=== PATIENT | male | born 1940 | race Caucasian/White ===

== ENCOUNTER 2017-09-13 11:04 | Inpatient (IN) | payer MEDICARE ==
[~2017-09-13] VITALS: Ht 185.4 cm; Wt 91.0 kg
[~2017-09-13 11:04] MED LIST: CAPTOPRIL12.5 MG PO; LEVEMIR100 UNIT/1 SQ; NOVOLOG100 UNITS1 SQ; ZOCOR40 MG PO
[2017-09-13] MEDS ORDERED: SODIUM CHLORIDE 0.9% 500ML 500 ML IV STA (11:26)
[2017-09-13] MEDS ORDERED: ONDANSETRON HCL 4 MG ORAL DISINTEGRATING TAB PO ONE (11:45)
[2017-09-13 11:52] LABS: BASOPHILS # (AUTO) 0.1 (0.0-0.1); BASOPHILS % 0.5 % (0.0-1.0); HEMATOCRIT 47.6 % (38.2-49.6); HEMOGLOBIN 15.9 g/dL (14.0-18.0); LYMPHOCYTES # (AUTO) 2.2 (1.0-3.2); LYMPHOCYTES % 11.2 % (18.0-39.1); MEAN CORPUSCULAR HEMOGLOBIN 30.9 pg (28-32); MEAN CORPUSCULAR HGB CONC 33.4 g/dL (31-35); MEAN CORPUSCULAR VOLUME 92.6 fL (81-99); MONOCYTES % 4.9 % (4.4-11.3); NEUTROPHILS # (AUTO) 16.1 (2.1-6.9); NEUTROPHILS % 82.2 % (38.7-80.0); PLATELET COUNT 279 x10e3/uL (140-360); RED BLOOD COUNT 5.14 x10e6/uL (4.3-5.7); RED CELL DISTRIBUTION WIDTH 12.5 % (11.7-14.4)
[2017-09-13 12:02] LABS: INR 1.15; PROTHROMBIN TIME 13.8 seconds (11.9-14.5)
[2017-09-13 12:03] LABS: PARTIAL THROMBOPLASTIN TIME 24.2 seconds (23.8-35.5)
[2017-09-13 12:03] LABS: BILIRUBIN,URINE NEGATIVE (NEGATIVE); CLARITY,URINE CLEAR (CLEAR); COLOR,URINE YELLOW (YELLOW); KETONES,URINE 3+ (NEGATIVE); LEUKOCYTE ESTERASE ,URINE NEGATIVE (NEGATIVE); NITRITE,URINE NEGATIVE (NEGATIVE); PROTEIN,URINE DIPSTICK NEGATIVE (NEGATIVE); URINE UROBILINOGEN 0.2 mg/dL (0.2 - 1)
[2017-09-13 12:08] LABS: ALBUMIN 4.2 g/dL (3.5-5.0); ALBUMIN/GLOBULIN RATIO 1.2 (0.8-2.0); ANION GAP 30.9 mmol/L (8-16); CALCIUM 10.1 mg/dL (8.4-10.2); CREATININE, SERUM 1.67 mg/dL (0.72-1.25); MAGNESIUM 1.8 MG/DL (1.3-2.1); POTASSIUM 4.9 mmol/L (3.5-5.1)
[2017-09-13] MEDS ORDERED: DIATRIZOATE MEGL/DIATRIZOA SOD 30 ML BTL PO ONE (12:47)
[2017-09-13] MEDS ORDERED: INSULIN REGULAR, HUMAN 100 UNIT/1 ML 3ML VIAL IV ONE (13:30)
[2017-09-13] MEDS ORDERED: HUMALOG100 UNIT/1 SC (13:43)
--- NOTE | 2017-09-13 15:27 | Diagnostic Imaging Report ---
PROCEDURE: CT ABDOMEN AND PELVIS WITH CONTRAST TECHNIQUE: The abdomen and pelvis were scanned utilizing a multidetector helical scanner from the diaphragm to the lesser trochanter after the IV administration of 100 cc of Isovue 370. Patient unable to drink. Coronal and sagittal multiplanar reformations were obtained. COMPARISON: None available.. INDICATIONS: LOWER ABDOMINAL PAIN, VOMITING, NAUSEA FINDINGS: LOWER THORAX: 2-3 mm nodule versus confluent scarring in the lateral right middle lobe (series 2, image 3). Questionable 2-3 mm nodule in the right lower lobe (series 2 image 4). Rest of the lung bases is clear. HEPATOBILIARY: Normal hepatic size and contour. No focal lesions. No biliary ductal dilation. Gallbladder is unremarkable. SPLEEN: No splenomegaly. PANCREAS: No focal masses or ductal dilatation. ADRENALS: No adrenal nodules. KIDNEYS/URETERS: No hydronephrosis, stones, or solid mass lesions. PELVIC ORGANS/BLADDER: Mild circumferential bladder wall thickening, without focal lesions. Prostate measures approximately 4.9 x 4.8 x 3.2 cm (estimated volume 39 cc), and indents the inferior aspect of the bladder. PERITONEUM / RETROPERITONEUM: No free air or fluid. LYMPH NODES: No lymphadenopathy. VESSELS: Celiac trunk, superior and inferior mesenteric, and bilateral renal arteries are patent. Portal, superior mesenteric, and splenic veins are patent. Likely circumaortic left renal vein. GI TRACT: No bowel dilation or evidence of obstruction. Mild wall thickening involving the terminal ileum (for example coronal image 34), with mild prominence of the submucosal fat. Mild wall thickening is also noted in the ascending colon, however, the large bowel is mostly decompressed. Mild prominence of the vasa recta in the ascending colon. Small bowel is unremarkable. Stomach is unremarkable. BONES AND SOFT TISSUES: No aggressive lytic lesions. Degenerative disc changes predominantly at L5-S1.. IMPRESSION: 1. Findings may represent mild terminal ileitis and ascending colitis, in the appropriate clinical setting, which may be infectious or inflammatory. Correlate for prior inflammatory bowel disease (particularly Crohn's) given the presence of submucosal fat deposition in the terminal ileum. No bowel dilation or evidence of obstruction. 2. Mild circumferential bladder wall thickening, likely secondary to bladder or other obstruction from enlarged prostate. 3. Nodular densities in the lateral right middle lobe and right lower lobe do not require followup if this is a low risk patient, per Fleischner Society 2017 guidelines. Zac Reese M.D. Dictated by: Zac Reese M.D. on 09/13/2017 at 15:28 Electronically approved by: Zac Reese M.D. on 09/13/2017 at 15:28
[2017-09-13] MEDS ORDERED: IOPAMIDOL 370 MG/ML 200 ML INFUS..BTL INJ ONE (15:31)
[2017-09-13] MEDS ORDERED: SODIUM CHLORIDE 0.9% 50ML 50 ML ONE (15:31)
[2017-09-13] MEDS ORDERED: ONDANSETRON HCL INJ 2 MG/ML VIAL IV STA (15:34)
[2017-09-13] MEDS ORDERED: SODIUM CHLORIDE 0.9% 1000ML 1,000 ML IV ONE (15:45)
[2017-09-13] MEDS ORDERED: SODIUM CHLORIDE 0.9% 1000ML 1,000 ML ONE (15:51)
[2017-09-13] MEDS: ACETAMINOPHEN 325 MG TAB PO ONE ×2 (16:31→16:51)
[2017-09-13] MEDS ORDERED: DEXTROSE 50% SYRINGE 50 ML IV PRN (16:45)
[2017-09-13] MEDS ORDERED: ACETAMINOPHEN 325 MG/10 ML UDC NG STA (16:49)
[2017-09-13] MEDS: SODIUM CHLORIDE 0.9% 1000ML 1,000 ML IV SCH ×3 (17:10→22:06)
--- OUTSIDE RECORDS SUMMARY | 2017-09-13 17:15 | XMS REPORT ---
Author Author [facility] [place] Address Unknown Phone Unavailable Care Team Providers Care Fiction Writer Name Role Phone DESTINY PLUMMER Unavailable Unavailable Problems This patient has no known problems. Allergies, Adverse Reactions, Alerts This patient has no known allergies or adverse reactions. Medications This patient has no known medications. Results Test Description Test Time Test Comments Text Results Atomic Results Result Comments CT ABDOMEN/PELVIS W [place] [address] Patient Name: ESSIE VILLAREAL MR #: [id number] : 1940 Age/Sex: 77/M Req #: [id number] Adm Physician: Ordered by: IDRIS ARREDONDO CARPET BINDER Report #: [id number] Location: ER Room/Bed: Procedure: [id number] CT/CT ABDOMEN/PELVIS W Exam Date: 09/13/17 Exam Time: 1350 REPORT STATUS: Signed PROCEDURE: CT ABDOMEN AND PELVIS WITH CONTRAST TECHNIQUE: The abdomen and pelvis were scanned utilizing a multidetector helical scanner from the diaphragm to the lesser trochanter after the IV administration of 100 cc of Isovue 370. Patient unable to drink. Coronal and sagittal multiplanar reformations were obtained. COMPARISON: None available.. INDICATIONS: LOWER ABDOMINAL PAIN, VOMITING, NAUSEA FINDINGS: LOWER THORAX: 2-3 mm nodule versus confluent scarring in the lateral right middle lobe (series 2, image 3 ). Questionable 2-3 mm nodule in the right lower lobe (series 2 image 4). Rest of the lung bases is clear. HEPATOBILIARY: Normal hepatic size and contour. No focal lesions. No biliary ductal dilation. Gallbladder is unremarkable. SPLEEN: No splenomegaly. PANCREAS: No focal masses or ductal dilatation. ADRENALS: No adrenal nodules. KIDNEYS/URETERS: No hydronephrosis, stones, or solid mass lesions. PELVIC ORGANS/BLADDER: Mild circumferential bladder wall thickening, without focal lesions. Prostate measures approximately 4.9 x 4.8 x 3.2 cm (estimated volume 39 cc), and indents the inferior aspect of the bladder. PERITONEUM / RETROPERITONEUM: No free air or fluid. LYMPH NODES: No lymphadenopathy. VESSELS: Celiac trunk, superior and inferior mesenteric, and bilateral renal arteries are patent. Portal, superior mesenteric, and splenic veins are patent. Likely circumaortic left renal vein. GI TRACT: No bowel dilation or evidence of obstruction. Mild wall thickening involving the terminal ileum (for example coronal image 34), with mild prominence of the submucosal fat. Mild wall thickening is also noted in the ascending colon, however, the large bowel is mostly decompressed. Mild prominence of the vasa recta in the ascending colon. Small bowel is unremarkable. Stomach is unremarkable. BONES AND SOFT TISSUES: No aggressive lytic lesions. Degenerative disc changes predominantly at L5-S1.. IMPRESSION: 1. Findings may represent mild terminal ileitis and ascending colitis, in the appropriate clinical setting, which may be infectious or inflammatory. Correlate for prior inflammatory bowel disease (particularly Crohn's) given the presence of submucosal fat deposition in the terminal ileum. No bowel dilation or evidence of obstruction. 2. Mild circumferential bladder wall thickening, likely secondary to bladder or other obstruction from enlarged prostate. 3. Nodular densities in the lateral right middle lobe and right lower lobe do not require followup if this is a low risk patient, per Fleischner Society 2017 guidelines. Shubham Reese M.D. Dictated by: Shubham Reese M.D. on 09/13/2017 at 15:28 Electronically approved by : Shubham Reese M.D. on 09/13/2017 at 15:28 Dictated By: SHUBHAM REESE MD [id number] Transcribed By: MACARIO on 09/13/17 1528 COPY TO: IDRIS ARREDONDO CARPET BINDER
[2017-09-13] MEDS: METRONIDAZOLE 500MG/NS 100ML 100 ML IV SCH ×2 (17:59→23:43)
[2017-09-13] MEDS ORDERED: INSULIN DETEMIR 100 UNIT/ML PEN SQ PRN (18:00)
[2017-09-13] MEDS ORDERED: METRONIDAZOLE 500MG/NS 100ML IV SCH (18:00)
[2017-09-13] MEDS ORDERED: MAGNESIUM SULF 1GRAM/DEXTROSE 100 ML IV PRN (18:00)
[2017-09-13] MEDS ORDERED: DEXTROSE 5%/0.45% SOD CHL 1,000 ML IV SCH (18:00)
[2017-09-13] MEDS ORDERED: INSULIN REGULAR, HUMAN 3ML VL 1 UNIT in SODIUM CHLORIDE 0.9% 100 ML IV SCH ×2 (18:00)
[2017-09-13] MEDS ORDERED: POTASSIUM CHLORIDE 20MEQ/100ML 200 ML IV PRN (18:00)
[2017-09-13 18:57] LABS: ANION GAP 30.3 mmol/L (8-16); CALCIUM 9.5 mg/dL (8.4-10.2); CREATININE, SERUM 1.72 mg/dL (0.72-1.25); MAGNESIUM 1.9 MG/DL (1.3-2.1)
[2017-09-13 19:01] LABS: POTASSIUM 6.3 mmol/L (3.5-5.1)
[2017-09-13] MEDS: INSULIN REGULAR, HUMAN 3ML VL 100 UNIT in SODIUM CHLORIDE 0.9% 100 ML IV SCH ×2 (19:34)
[2017-09-13] MEDS: INSULIN REGULAR, HUMAN 100 UNIT/1 ML 3ML VIAL SQ SCH (20:01)
[2017-09-13] MEDS ORDERED: SOD POLYSTYRENE SULFONATE SUSP 15 GM/60 ML BTL PO ONE (20:30)
[2017-09-13] MEDS: PIPER-TAZ 3.375 GM 50 ML IV SCH (21:59)
[2017-09-13] MEDS ORDERED: PIPER-TAZ 3.375 GM / NS 50ML IV SCH (22:00)
[2017-09-13 22:11] LABS: ANION GAP 24.4 mmol/L (8-16); CALCIUM 8.7 mg/dL (8.4-10.2); CREATININE, SERUM 1.89 mg/dL (0.72-1.25); MAGNESIUM 1.9 MG/DL (1.3-2.1); POTASSIUM 4.4 mmol/L (3.5-5.1)
[2017-09-14] MEDS ORDERED: CEPACOL SORE THROAT LOZENGES PO ONE (00:11)
[2017-09-14] MEDS: SODIUM CHLORIDE 0.9% 1000ML 1,000 ML IV SCH ×3 (00:30→06:23)
[2017-09-14 01:49] LABS: CALCIUM 8.6 mg/dL (8.4-10.2); CREATININE, SERUM 1.6 mg/dL (0.72-1.25); MAGNESIUM 1.8 MG/DL (1.3-2.1)
[2017-09-14] MEDS ORDERED: DEXTROSE 5%/0.45% SOD CHL 1,000 ML IV ONE (02:50)
[2017-09-14] MEDS ORDERED: SODIUM CHLORIDE 0.9% 100 ML ONE (04:16)
[2017-09-14] MEDS: INSULIN REGULAR, HUMAN 3ML VL 100 UNIT in SODIUM CHLORIDE 0.9% 100 ML IV SCH ×2 (04:25)
[2017-09-14] MEDS ORDERED: DEXTROSE 5%/0.45% SOD CHL 1,000 ML IV PRN (04:30)
[2017-09-14] MEDS: METRONIDAZOLE 500MG/NS 100ML 100 ML IV SCH ×3 (05:30→17:49)
[2017-09-14 05:32] LABS: BASOPHILS % 0.1 % (0.0-1.0); EOSINOPHILS % 0.1 % (0.0-6.0); HEMATOCRIT 38.4 % (38.2-49.6); HEMOGLOBIN 12.9 g/dL (14.0-18.0); LYMPHOCYTES % 7.1 % (18.0-39.1); MEAN CORPUSCULAR HEMOGLOBIN 31.1 pg (28-32); MEAN CORPUSCULAR HGB CONC 33.6 g/dL (31-35); MEAN CORPUSCULAR VOLUME 92.5 fL (81-99); MONOCYTES # (AUTO) 1.4 (0.2-0.8); MONOCYTES % 10.4 % (4.4-11.3); NEUTROPHILS # (AUTO) 11.2 (2.1-6.9); NEUTROPHILS % 81.9 % (38.7-80.0); PLATELET COUNT 226 x10e3/uL (140-360); RED BLOOD COUNT 4.15 x10e6/uL (4.3-5.7); RED CELL DISTRIBUTION WIDTH 12.9 % (11.7-14.4)
[2017-09-14 06:10] LABS: ALBUMIN 3.2 g/dL (3.5-5.0); ALBUMIN/GLOBULIN RATIO 1.2 (0.8-2.0); ANION GAP 10.4 mmol/L (8-16); CALCIUM 8.4 mg/dL (8.4-10.2); CREATININE, SERUM 1.53 mg/dL (0.72-1.25); POTASSIUM 3.4 mmol/L (3.5-5.1)
[2017-09-14] MEDS: PIPER-TAZ 3.375 GM 50 ML IV SCH ×3 (06:23→21:53)
[2017-09-14] MEDS ORDERED: POTASSIUM CHLORIDE 20MEQ/100ML 100 ML ONE (06:26)
[2017-09-14] MEDS: INSULIN REGULAR, HUMAN 100 UNIT/1 ML 3ML VIAL SQ SCH (07:37)
[2017-09-14] MEDS ORDERED: MAGNESIUM SULF 1GRAM/DEXTROSE 100 ML IV PRN (07:45)
[2017-09-14] MEDS: ONDANSETRON HCL INJ 2 MG/ML VIAL IV PRN (08:40)
[2017-09-14 09:56] LABS: ANION GAP 13.6 mmol/L (8-16); CALCIUM 8.2 mg/dL (8.4-10.2); CREATININE, SERUM 1.46 mg/dL (0.72-1.25); MAGNESIUM 1.8 MG/DL (1.3-2.1); POTASSIUM 3.6 mmol/L (3.5-5.1)
[2017-09-14] MEDS ORDERED: INSULIN DETEMIR 100 UNIT/ML PEN SQ PRN (13:45)
[2017-09-14 13:59] LABS: ANION GAP 10.1 mmol/L (8-16); CALCIUM 8.2 mg/dL (8.4-10.2); CREATININE, SERUM 1.33 mg/dL (0.72-1.25); MAGNESIUM 1.9 MG/DL (1.3-2.1); POTASSIUM 3.1 mmol/L (3.5-5.1)
[2017-09-14] MEDS: D5.45%NS/KCL 20MEQ 1,000 ML IV SCH ×2 (14:33→23:37)
--- NOTE | 2017-09-14 14:42 | Consultation ---
DATE OF CONSULTATION: September 14, 2017 ENDOCRINE CONSULTATION Thank you very much for referring this patient. This is a 77-year-old white male who is very well known to me from his previous followups in my office. Patient is a known case of type 1 diabetes mellitus with complications, including severe diabetic sensory neuropathy. Patient came to the hospital with a history of abdominal pain, nausea, vomiting, and high blood sugar. During the hospital stay, the patient has been getting IV fluids. He also has several complications related to diabetes, including severe diabetic sensorimotor neuropathy. PHYSICAL EXAMINATION GENERAL: Today, the patient is alert, awake and a little bit apprehensive. VITALS: His heart rate is around 100 and blood pressure 130/80 mmHg. HEENT: Essentially unremarkable. Thyroid is palpable. Clinically, he is near euthyroid. CHEST: Bilateral vesicular breathing. He has mild bronchospasm. ABDOMEN: Tenderness in the epigastric and the right upper quadrant area. EXTREMITIES: Patient has evidence of diabetic sensory neuropathy in both lower extremities. CLINICAL IMPRESSION 1. Diabetes mellitus, type 1. 2. Diabetic ketoacidosis. 3. Colitis. 4. Abdominal pain. The plan at this time is to continue insulin drip. Advance his diet. Will do a hemoglobin A1c. Thanks again for referring this patient. I will follow this patient with you. Job#: [id number] BOBBY
[2017-09-14 14:55] LABS: CHOL/HDL RATIO 3.1 (3.9-4.7)
[2017-09-14 15:15] LABS: FREE T4 (FREE THYROXINE) 0.87 ng/dL (0.9-1.8); THYROID STIMULATING HORMONE 1.562 uIU/mL (0.350-4.940)
[2017-09-14] MEDS ORDERED: INSULIN REGULAR, HUMAN 100 UNITS in SODIUM CHLORIDE 0.45% 100 ML SQ PRN ×2 (20:30)
[2017-09-14] MEDS ORDERED: INSULIN REGULAR, HUMAN 100 UNITS in SODIUM CHLORIDE 0.45% 100 ML IV PRN ×4 (20:30)
[2017-09-14 20:43] VITALS: BP 123/64
[2017-09-14 21:34] VITALS: BP 123/64
[2017-09-14] MEDS: ACETAMINOPHEN 325 MG TAB PO PRN (21:53)
[2017-09-15] VITALS (7 sets, daily range): BP systolic 120–141; BP diastolic 66–82
[2017-09-15] MEDS: METRONIDAZOLE 500MG/NS 100ML 100 ML IV SCH ×4 (00:43→19:28)
--- NOTE | 2017-09-15 03:10 | Consultation ---
DATE OF CONSULTATION: September 14, 2017 HISTORY: This is 77-year-old who has history of diabetes, presented to the hospital because of some abdominal pain, mainly is in lower abdominal area along with some nausea, vomiting, and some diarrhea. Patient was found to have DKA on admission. He also had a CAT scan done on admission, which showed evidence of mild terminal ileitis as well as ascending colitis, has mild circumferential bladder wall thickening. He is currently on insulin drip. His white count was 19,000 on admission and this is down to 13,000. He said that he has colonoscopy about 7 years or so ago, which was supposedly normal. OTHER MEDICAL PROBLEM: Significant for history of diabetes as mentioned before. Also history of hypertension and hypercholesterolemia. MEDICATIONS ON ADMISSION: Including captopril, insulin, . ALLERGIES: NONE. SOCIAL HISTORY: Denies any alcohol use. FAMILY HISTORY: Noncontributory. REVIEW OF SYSTEMS: Denies any chest pain. No shortness of breath. Denies any dysphagia or odynophagia. Denies any dysuria or hematuria or any kind of syncopal episodes. PHYSICAL EXAMINATION: GENERAL: Patient is awake, alert, appeared to be stable, and not in acute distress at this point. VITAL SIGNS: Afebrile currently with stable vital signs. HEAD, EYES, EARS, NOSE, AND THROAT: Normocephalic, atraumatic. Sclerae are anicteric. NECK: Supple. HEART: Regular. LUNGS: Clear. ABDOMEN: Soft. There is mild lower abdominal tenderness. There is no rebound or mass. EXTREMITIES: No clubbing. LAB VALUES: Significant for as of this morning, WBC of 13.6, hemoglobin of 12.9. Potassium 3.1, BUN 23, creatinine 1.33. CAT scan as mentioned before. IMPRESSION: 1. Abdominal pain, nausea, vomiting, diarrhea. 2. Diabetes with diabetic ketoacidosis. 3. Possible colitis, either infectious or inflammatory colitis. RECOMMENDATIONS: Continue on current care for DKA. Continue on antibiotic at this point. He will need to have a colonoscopy at some point for further evaluation DKA is better. Job#: [id number] cc:ROLF STRICKLAND MD
[2017-09-15] MEDS: PIPER-TAZ 3.375 GM 50 ML IV SCH ×4 (05:37→19:30)
[2017-09-15 06:28] LABS: ANION GAP 14.1 mmol/L (8-16); BLOOD UREA NITROGEN 17 mg/dL (7-26); BUN/CREATININE RATIO 16 (6-25); CALCIUM 8.6 mg/dL (8.4-10.2); CARBON DIOXIDE 21 mmol/L (22-29); CHLORIDE 111 mmol/L (98-107); CREATININE, SERUM 1.09 mg/dL (0.72-1.25); EST GLOMERULAR FILTRATION RATE > 60 ML/MIN (60-); GLUCOSE 208 mg/dL (74-118); POTASSIUM 4.1 mmol/L (3.5-5.1); SODIUM 142 mmol/L (136-145)
[2017-09-15] MEDS: D5.45%NS/KCL 20MEQ 1,000 ML IV SCH ×3 (11:26→23:50)
[2017-09-15] MEDS: ACETAMINOPHEN 325 MG TAB PO PRN ×2 (12:43→19:44)
[2017-09-15] MEDS: INSULIN LISPRO 100 UNIT/1 ML 3ML VIAL SQ SCH ×4 (17:01→21:15)
[2017-09-15] MEDS: INSULIN DETEMIR 100 UNIT/ML PEN SQ SCH (18:23)
[2017-09-16] VITALS (7 sets, daily range): BP systolic 121–151; BP diastolic 71–85
[2017-09-16] MEDS: METRONIDAZOLE 500MG/NS 100ML 100 ML IV SCH (00:16)
[2017-09-16] MEDS: PIPER-TAZ 3.375 GM 50 ML IV SCH ×3 (01:24→16:24)
[2017-09-16] MEDS: ONDANSETRON HCL INJ 2 MG/ML VIAL IV PRN ×2 (01:29→08:05)
[2017-09-16 06:40] LABS: BASOPHILS % 0.3 % (0.0-1.0); EOSINOPHILS % 0.5 % (0.0-6.0); HEMATOCRIT 40.9 % (38.2-49.6); HEMOGLOBIN 13.6 g/dL (14.0-18.0); LYMPHOCYTES % 14.1 % (18.0-39.1); MEAN CORPUSCULAR HEMOGLOBIN 30.7 pg (28-32); MEAN CORPUSCULAR HGB CONC 33.3 g/dL (31-35); MEAN CORPUSCULAR VOLUME 92.3 fL (81-99); MONOCYTES # (AUTO) 0.7 (0.2-0.8); MONOCYTES % 9.7 % (4.4-11.3); NEUTROPHILS # (AUTO) 5.5 (2.1-6.9); PLATELET COUNT 153 x10e3/uL (140-360); RED BLOOD COUNT 4.43 x10e6/uL (4.3-5.7); RED CELL DISTRIBUTION WIDTH 12.9 % (11.7-14.4)
[2017-09-16 06:59] LABS: ALANINE AMINOTRANSFERASE 28 IU/L (0-55); ALBUMIN 3.2 g/dL (3.5-5.0); ALBUMIN/GLOBULIN RATIO 1.1 (0.8-2.0); ALKALINE PHOSPHATASE 67 IU/L (40-150); BLOOD UREA NITROGEN 7 mg/dL (7-26); BUN/CREATININE RATIO 9 (6-25); CALCIUM 8.7 mg/dL (8.4-10.2); CARBON DIOXIDE 24 mmol/L (22-29); CHLORIDE 102 mmol/L (98-107); CREATININE, SERUM 0.82 mg/dL (0.72-1.25); EST GLOMERULAR FILTRATION RATE > 60 ML/MIN (60-); GLUCOSE 324 mg/dL (74-118); SODIUM 136 mmol/L (136-145)
[2017-09-16] MEDS: INSULIN LISPRO 100 UNIT/1 ML 3ML VIAL SQ SCH ×7 (08:03→23:13)
[2017-09-16] MEDS: D5.45%NS/KCL 20MEQ 1,000 ML IV SCH ×2 (08:04→17:47)
[2017-09-16] MEDS: INSULIN DETEMIR 100 UNIT/ML PEN SQ SCH ×2 (08:04→16:25)
[2017-09-16] MEDS: GUAIFENESIN/DEXTROMETHORPHAN LIQD 5 ML UDC NG PRN (20:40)
[2017-09-17] VITALS (8 sets, daily range): BP systolic 125–151; BP diastolic 72–93
[2017-09-17] MEDS: GUAIFENESIN/DEXTROMETHORPHAN LIQD 5 ML UDC NG PRN ×2 (00:29→21:56)
[2017-09-17] MEDS: PIPER-TAZ 3.375 GM 50 ML IV SCH ×4 (02:55→20:15)
[2017-09-17] MEDS: INSULIN LISPRO 100 UNIT/1 ML 3ML VIAL SQ SCH ×6 (07:30→21:00)
[2017-09-17] MEDS: ACETAMINOPHEN 325 MG TAB PO PRN (08:25)
[2017-09-17] MEDS: D5.45%NS/KCL 20MEQ 1,000 ML IV SCH ×4 (08:25→22:29)
[2017-09-17] MEDS: INSULIN DETEMIR 100 UNIT/ML PEN SQ SCH ×2 (08:37→16:34)
--- NOTE | 2017-09-17 23:27 | Progress Note ---
DATE: September 17, 2017 SUBJECTIVE: Patient reports improvement in diarrhea. No abdominal pain. REVIEW OF SYSTEMS: GENERAL: No fever or chills. CVS: No chest pain, palpitation. RESPIRATORY: No cough or expectoration. MEDICATIONS: Reviewed, as per AUG. PHYSICAL EXAMINATION: VITAL SIGNS: Temperature 97.8, pulse 74, respiration 20, blood pressure 147/87, oxygen saturation 97% on room air. GENERAL: Not in any acute distress. HEENT: Moist mucous membranes. Anicteric sclerae. CVS: S1 and S2 regular. LUNGS: Bilaterally grossly clear. ABDOMEN: Soft, nondistended, nontender. Bowel sounds slightly hyperactive. No rigidity, rebound, or any guarding. EXTREMITIES: Warm. No leg edema. LABS: Blood work done yesterday showed WBC 7.32, hemoglobin 13.6, hematocrit 40.9, MCV 92.3, platelet count 153,000. Electrolytes showed sodium 136, potassium 4.0, chloride 102, bicarb 24, BUN 14, creatinine 7. Liver enzymes showed total protein 1.5, AST 43, ALT 28, alkaline phosphatase 67. Urinalysis negative. CT of the abdomen and pelvis done on September 13, 2017 showed mild terminal ileitis and ascending colitis. PLAN: DKA has resolved. Patient does not have any active abdominal symptoms as diarrhea has also improved. Terminal ileitis and ascending colitis seen on the CT scan could most likely be due to ischemic vs infectious, unlikely inflammatory. 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 Horace Yeung in [facility]. He will contact Dr. Yeung upon discharge. Job#: [id number] DR PEOPLES
[2017-09-18 00:41] VITALS: BP 132/88
[2017-09-18] MEDS: PIPER-TAZ 3.375 GM 50 ML IV SCH ×2 (02:40→11:46)
[2017-09-18 05:33] VITALS: BP 145/88
[2017-09-18 07:29] VITALS: BP 145/88
[2017-09-18 07:45] VITALS: BP 133/82
[2017-09-18] MEDS: INSULIN LISPRO 100 UNIT/1 ML 3ML VIAL SQ SCH ×6 (08:00→16:54)
[2017-09-18] MEDS: INSULIN DETEMIR 100 UNIT/ML PEN SQ SCH ×2 (08:01→16:55)
[2017-09-18 09:28] LABS: BASOPHILS % 0.4 % (0.0-1.0); EOSINOPHILS # (AUTO) 0.1 (0.0-0.4); EOSINOPHILS % 1.5 % (0.0-6.0); HEMATOCRIT 43.3 % (38.2-49.6); HEMOGLOBIN 14.4 g/dL (14.0-18.0); LYMPHOCYTES # (AUTO) 0.9 (1.0-3.2); MEAN CORPUSCULAR HEMOGLOBIN 30.7 pg (28-32); MEAN CORPUSCULAR HGB CONC 33.3 g/dL (31-35); MEAN CORPUSCULAR VOLUME 92.3 fL (81-99); MONOCYTES # (AUTO) 0.6 (0.2-0.8); MONOCYTES % 11.7 % (4.4-11.3); NEUTROPHILS # (AUTO) 3.1 (2.1-6.9); PLATELET COUNT 183 x10e3/uL (140-360); RED BLOOD COUNT 4.69 x10e6/uL (4.3-5.7); RED CELL DISTRIBUTION WIDTH 12.7 % (11.7-14.4)
[2017-09-18 09:54] LABS: ALANINE AMINOTRANSFERASE 28 IU/L (0-55); ALKALINE PHOSPHATASE 70 IU/L (40-150); ANION GAP 12.4 mmol/L (8-16); BLOOD UREA NITROGEN 9 mg/dL (7-26); BUN/CREATININE RATIO 9 (6-25); CALCIUM 8.8 mg/dL (8.4-10.2); CARBON DIOXIDE 26 mmol/L (22-29); CHLORIDE 103 mmol/L (98-107); CREATININE, SERUM 0.95 mg/dL (0.72-1.25); EST GLOMERULAR FILTRATION RATE > 60 ML/MIN (60-); GLUCOSE 261 mg/dL (74-118); POTASSIUM 3.4 mmol/L (3.5-5.1); SODIUM 138 mmol/L (136-145)
[2017-09-18 11:33] VITALS: BP 123/70
[2017-09-18] MEDS: D5.45%NS/KCL 20MEQ 1,000 ML IV SCH (11:51)
--- NOTE | 2017-09-18 13:36 | Progress Note ---
DATE: September 18, 2017 SUBJECTIVE: Patient reports no bowel movement today, only passing flatus. No abdominal pain. Tolerating oral feeds very well. He wished to go home today. REVIEW OF SYSTEMS: GENERAL: No fever or chills. CVS: No chest pain or palpitation. RESPIRATORY: No cough or expectoration. MEDICATIONS: Reviewed, as per AUG. PHYSICAL EXAMINATION: VITAL SIGNS: Temperature 97.8, pulse 76, respirations 17, blood pressure 133/82, oxygen saturation 94% on room air. GENERAL: Not in any acute distress. HEENT: Moist mucous membranes. Anicteric sclerae. CVS: S1 and S2 regular. LUNGS: Bilaterally grossly clear. ABDOMEN: Soft, nondistended, nontender. No palpable mass or hernia. Positive bowel sounds. EXTREMITIES: Warm. No leg edema. LABS: WBC 4.70, hemoglobin 14.4, hematocrit 43.3, MCV 92.3, platelet count 183. Sodium 138, potassium 3.4, chloride 103, bicarb 26, BUN 9, creatinine 0.95. Liver enzymes showed total bilirubin of 0.6, AST 48, ALT 28, alkaline phosphatase 70. IMPRESSION 1. Acute diarrhea has resolved. Likely infectious. CT of the abdomen had shown some mucosal thickening in the distal terminal ileum and ascending colon. 2. Diabetic ketoacidosis, this has resolved. PLAN: From GI standpoint, patient can be discharged home. He had a self-limiting infectious gastroenteritis, which has resolved. Patient to follow up with his psychologist clinical, Dr. Horace Yeung in [facility]. Job#: [id number] VAS
[2017-09-18 17:16] VITALS: BP 111/69
[2017-09-18] MEDS ORDERED: POTASSIUM CHLORIDE 20 MEQ TAB CR PO ONE (18:30)
--- NOTE | 2017-10-29 01:48 | Discharge Summary ---
DISCHARGE DIAGNOSES: 1. Colitis. 2. Diabetic ketoacidosis. 3. Diabetes. 4. Leukocytosis. HISTORY OF PRESENT ILLNESS AND HOSPITAL COURSE: Patient is 77-year-old gentleman, who presented with abdominal pain with a CT scan showing colitis as well as evidence of DKA, so he was brought in, placed on IV fluids, IV insulin. Was seen by Dr. Cannon for DKA, which resolved fairly quickly. He was placed on IV antibiotics for the colitis, and he was seen by GI while he was here. His diarrhea finally did start to improve with continued care. At the time of discharge, patient's diarrhea was doing much better, so he was being able to switch over to p.o. medications and discharged. Will follow up with his primary care physician in 1 to 2 weeks. Please see hospital chart for full details. ROLF STRICKLAND MD Job#: [id number]
== END 2017-09-18 18:10 | disposition home or self-care (01) | DRG 638 ==
LOC: ER 11:04 → ERHOLD 17:13 → EDBEDREQSVC 20:46 → IMCU 09-14 20:02
PROVIDERS: ADMIT Internal Medicine; ATTEND Internal Medicine
DX: E10.10 Type 1 diabetes mellitus with ketoacidosis without coma (principal); E87.1 Hypo-osmolality and hyponatremia; A09 Infectious gastroenteritis and colitis, unspecified; I10 Essential (primary) hypertension; E78.00 Pure hypercholesterolemia, unspecified; E10.42 Type 1 diabetes mellitus with diabetic polyneuropathy; Z79.4 Long term (current) use of insulin
CPT/HCPCS: 36415; 74177; 80048; 80053; 80061; 81001; 82150; 82948; 83036; 83605; 83690; 83735; 84439; 84443; 85025; 85610; 85730; 87040; 96360; 96365; 96372; 96376; 99284; J2405; J2543; J3475; J3480; J7030; J7040; J7050; Q9967

== ENCOUNTER 2021-04-23 11:41 | Outpatient (RCR) | payer MEDICARE | END 2021-04-26 | LOC: WCC 11:41 | PROVIDERS: ATTEND Family Medicine Adult Medicine | DX: E11.65 Type 2 diabetes mellitus with hyperglycemia (principal); E11.69 Type 2 diabetes mellitus with other specified complication; C61 Malignant neoplasm of prostate; K62.7 Radiation proctitis; K62.89 Other specified diseases of anus and rectum; L59.8 Other specified disorders of the skin and subcutaneous tissue related to radiation; I10 Essential (primary) hypertension; E78.5 Hyperlipidemia, unspecified; G99.0 Autonomic neuropathy in diseases classified elsewhere; Z01.810 Encounter for preprocedural cardiovascular examination ==

== ENCOUNTER → 2021-04-23 | Outpatient (CLI) | payer MEDICARE ==
[~2021-04-23] MED LIST changes: +HUMALOG100 UNIT/1 SC
== END ==
LOC: RAD 12:54
PROVIDERS: ATTEND Family Medicine Adult Medicine
DX: Z01.810 Encounter for preprocedural cardiovascular examination (principal); L59.8 Other specified disorders of the skin and subcutaneous tissue related to radiation; C61 Malignant neoplasm of prostate; K62.7 Radiation proctitis
CPT/HCPCS: 71046; 93005; 93306

== ENCOUNTER → 2022-03-26 | Outpatient (RCR) | payer MEDICARE | LOC: WCC 11:25 | PROVIDERS: ATTEND Internal Medicine Infectious Disease | DX: C61 Malignant neoplasm of prostate (principal); N30.41 Irradiation cystitis with hematuria; T66.XXXA Radiation sickness, unspecified, initial encounter; E11.65 Type 2 diabetes mellitus with hyperglycemia; E11.69 Type 2 diabetes mellitus with other specified complication; H59.091 Other disorders of the right eye following cataract surgery; I10 Essential (primary) hypertension; E78.5 Hyperlipidemia, unspecified; G99.0 Autonomic neuropathy in diseases classified elsewhere; I06.0 Rheumatic aortic stenosis; K62.7 Radiation proctitis; R31.0 Gross hematuria; Z01.810 Encounter for preprocedural cardiovascular examination | CPT/HCPCS: 71046 ==

== ENCOUNTER → 2022-04-09 | Outpatient (CLI) | payer MEDICARE | LOC: RAD 08:45 | PROVIDERS: ATTEND Family Medicine Adult Medicine | DX: Z01.810 Encounter for preprocedural cardiovascular examination (principal); N30.41 Irradiation cystitis with hematuria | CPT/HCPCS: 93005 ==

== ENCOUNTER → 2022-04-26 | Outpatient (RCR) | payer MEDICARE | LOC: WCC 04-08 15:02 | PROVIDERS: ATTEND Family Medicine Adult Medicine | DX: C61 Malignant neoplasm of prostate (principal); N30.41 Irradiation cystitis with hematuria; T66.XXXS Radiation sickness, unspecified, sequela; K62.7 Radiation proctitis; E11.65 Type 2 diabetes mellitus with hyperglycemia; E11.69 Type 2 diabetes mellitus with other specified complication; H59.091 Other disorders of the right eye following cataract surgery; I06.0 Rheumatic aortic stenosis; I10 Essential (primary) hypertension; E78.5 Hyperlipidemia, unspecified; G99.0 Autonomic neuropathy in diseases classified elsewhere; R31.0 Gross hematuria; Z01.810 Encounter for preprocedural cardiovascular examination | CPT/HCPCS: 36415 ×5; 82948 ×5; 99212 ×2; G0277 ×5 ==

== ENCOUNTER → 2022-05-26 | Outpatient (RCR) | payer MEDICARE | LOC: WCC 04-28 10:15 | PROVIDERS: ATTEND Family Medicine Adult Medicine | DX: E11.69 Type 2 diabetes mellitus with other specified complication (principal); E11.65 Type 2 diabetes mellitus with hyperglycemia; K62.7 Radiation proctitis; T66.XXXS Radiation sickness, unspecified, sequela; N30.41 Irradiation cystitis with hematuria; R31.0 Gross hematuria; C61 Malignant neoplasm of prostate; H59.091 Other disorders of the right eye following cataract surgery; I10 Essential (primary) hypertension; G99.0 Autonomic neuropathy in diseases classified elsewhere; E78.5 Hyperlipidemia, unspecified; I06.0 Rheumatic aortic stenosis; Z01.810 Encounter for preprocedural cardiovascular examination | CPT/HCPCS: 36415 ×18; 82948 ×18; G0277 ×16 ==

== ENCOUNTER 2023-12-27 17:35 | Emergency (ER) | payer MEDICARE ==
[~2023-12-27] VITALS: Ht 182.9 cm; Wt 89.8 kg
[2023-12-27 17:40] VITALS: PULSE 77; RESP 18; TEMP 97.8
[2023-12-27] MEDS: TETANUS/DIPHTHERIA TOX ADULT 0.5 ML SYR IM ONE (18:35)
[2023-12-27] MEDS: BACITRACIN ZINC 0.9GM TP ONE (18:35)
[2023-12-27 20:35] VITALS: BP 140/72; PULSE 77; RESP 18; TEMP 97.8; O2SAT 97
== END 2023-12-27 20:35 | disposition home or self-care (01) ==
LOC: FSED 17:38
DX: S00.83XA Contusion of other part of head, initial encounter (principal); S02.19XA Other fracture of base of skull, initial encounter for closed fracture; W01.198A Fall on same level from slipping, tripping and stumbling with subsequent striking against other object, initial encounter; Y92.015 Private garage of single-family (private) house as the place of occurrence of the external cause; E78.5 Hyperlipidemia, unspecified; E11.9 Type 2 diabetes mellitus without complications; Z79.4 Long term (current) use of insulin; Z95.2 Presence of prosthetic heart valve; Z79.82 Long term (current) use of aspirin
CPT/HCPCS: 70450; 90714; 99283